=== PATIENT | female | born 1965 | race Two or more races ===

== ENCOUNTER 2024-01-18 07:53 | Outpatient (OUT) | payer OTHER, SELFPAY ==
--- NOTE | 2024-01-18 07:57 | MM_ITS ---
Patient Name: BRITTANI BARRIENTOS MR#: [id number] : 1965 Exam Date: 01/18/2024 Ordering Doctor: DR TL CÁRDENAS M.D. RADIOLOGY REPORT PROCEDURE: MM TOMOSYNTHESIS SCREENING BI COMPARISON: MG MAMM SCREEN ROSI W CAD, 09/29/2018. MG MAMM SCREEN 3D ROSI CAD, 02/04/2021. INDICATIONS: Screening Calculator Name NCI Breast Cancer Risk Assessment Tool 5 Year Breast Cancer Risk 1.80% Lifetime Breast Cancer Risk 9.50% Personal Breast Cancer No Personal Ovarian Cancer No Treatments None Family Cancers Brother with kidney/lung cancer at age 48; Mother with bone cancer at age 75; Mother with breast cancer at age 76. LOCATION: [facility] BREAST COMPOSITION: Heterogeneously dense,which may obscure small masses. FINDINGS: DIAGNOSTIC CATEGORY 0--INCOMPLETE: NEED ADDITIONAL IMAGING EVALUATION. Scattered benign-appearing nodules are present. Scattered benign-appearing calcifications are present. Scattered benign-appearing lymph nodes are present. RIGHT BREAST: Increasing cluster of calcifications upper outer quadrant, mid to posterior breast. Spot magnification recommended. LEFT BREAST: No significant suspicious finding. RECOMMENDATIONS: ADDITIONAL MAMMOGRAPHIC VIEWS REQUIRED: RIGHT BREAST - spot magnification PLEASE NOTE: A NORMAL MAMMOGRAM DOES NOT EXCLUDE THE POSSIBILITY OF BREAST CANCER. A CLINICALLY SUSPICIOUS PALPABLE LUMP SHOULD BE BIOPSIED. Dictated by: Dennis Reed MD on 01/18/2024 at 09:20 Approved by: Dennis Reed MD on 01/18/2024 at 09:23
== END 2024-01-18 07:54 | disposition home or self-care (01) ==
LOC: MAMMO 07:53
PROVIDERS: PCP Family Medicine; Visit Provider Family Medicine
DX: Z12.31 Encounter for screening mammogram for malignant neoplasm of breast (principal); Z80.3 Family history of malignant neoplasm of breast; Z80.51 Family history of malignant neoplasm of kidney; Z80.1 Family history of malignant neoplasm of trachea, bronchus and lung; Z80.8 Family history of malignant neoplasm of other organs or systems
CPT/HCPCS: 77063; 77067

== ENCOUNTER 2024-02-05 11:45 | Outpatient (OUT) | payer OTHER, SELFPAY ==
--- NOTE | 2024-02-05 11:48 | MM_ITS ---
Patient Name: BRITTANI BARRIENTOS MR#: [id number] : 1965 Exam Date: 02/05/2024 Ordering Doctor: DR TL CÁRDENAS M.D. RADIOLOGY REPORT PROCEDURE: MAMMOGRAM RIGHT DIAGNOSTIC DIGITAL FOLLOW UP COMPARISON: MM TOMOSYNTHESIS SCREENING BI, 01/18/2024. MG MAMM SCREEN 3D ROSI CAD, 02/04/2021. MG MAMM SCREEN ROSI W CAD, 09/29/2018. MG MAMM SCREEN ROSI W CAD, 09/28/2017. INDICATIONS: Abnormal Mammogram Calculator Name NCI Breast Cancer Risk Assessment Tool 5 Year Breast Cancer Risk 1.80% Lifetime Breast Cancer Risk 9.50% Personal Breast Cancer No Personal Ovarian Cancer No Treatments None Family Cancers Brother with kidney/lung cancer at age 48; Mother with bone cancer at age 75; Mother with breast cancer at age 76. LOCATION: [facility] BREAST COMPOSITION: Heterogeneously dense,which may obscure small masses. FINDINGS: DIAGNOSTIC CATEGORY 4--SUSPICIOUS FOR MALIGNANCY. FINDING DOES NOT EXHIBIT CLASSIC FINDINGS OF BREAST CANCER: RIGHT BREAST: Spot magnification views demonstrate increased number of pleomorphic calcifications within posterior upper-outer quadrant, approximately 9 o'clock. Stereotactic guided biopsy is recommended. RECOMMENDATIONS: STEREOTACTIC BREAST BIOPSY: RIGHT BREAST PLEASE NOTE: A NORMAL MAMMOGRAM DOES NOT EXCLUDE THE POSSIBILITY OF BREAST CANCER. A CLINICALLY SUSPICIOUS PALPABLE LUMP SHOULD BE BIOPSIED. Dictated by: Robert Blanc M.D. on 02/05/2024 at 12:21 Approved by: Robert Blanc M.D. on 02/05/2024 at 12:41
--- OUTSIDE RECORDS SUMMARY | 2024-02-05 11:56 | XMS_ITS | CCD ---
Author Organization [facility] Care Team Providers Care Water Purifier Name Role Phone FISH PINEDA Primary Care Unavailable CONNOR, DR LISA Mcdaniel Attending Unavailable HEMMINDI, DR LISA Mcdaniel Admitting Unavailable HEMMINDI, DR LISA Mcdaniel Admitting Unavailable FISH PINEDA Primary Care Unavailable EDILMA TABOR Consulting Unavailable CONNOR, DR LISA Mcdaniel Attending Unavailable HEMMINDI, DR LISA Mcdaniel Consulting Unavailable Mónica Rivera MD Primary Care Provider LISA PAT Attending Unavailable Medications Current Medications Medication Drug Class(es) Dates Sig (Normalized) Sig (Original) atorvastatin 10 mg oral tablet (3 sources) HMG-CoA Reductase Inhibitor Start: 08-14-20 23 take 1 tablet by mouth in the morning atorvastatin (Lipitor) 10 MG tablet Indications: Benign essential hypertension (CMS/HCC) Take 1 tablet (10 mg) by mouth in the morning. 90 tablet 3 08/14/2023 Active azithromycin 250 mg oral tablet (2 sources) Macrolide Antimicrobial Start: 12-23-19 24 End: 12-27-19 24 take 2 tablets by mouth once daily, then take 1 tablet by mouth once daily azithromycin (Zithromax) 250 MG tablet Indications: URI with cough and congestion Take 2 tablets (500 mg) by mouth Daily for 1 day, THEN 1 tablet (250 mg) Daily for 4 days. 6 tablet 0 12/23/2023 12/27/2023 Active benzonatate 200 mg oral capsule (2 sources) Non-narcotic Antitussive Start: 12-23-19 24 End: 12-30-19 24 take 1 capsule by mouth three times daily as needed for cough benzonatate (Tessalon) 200 MG capsule Indications: URI with cough and congestion Take 1 capsule (200 mg) by mouth 3 (three) times a day as needed for cough for up to 7 days Do not crush or chew. 21 capsule 0 12/23/2023 12/30/2023 Active carvedilol 25 mg oral tablet (3 sources) alpha-Adrenergic Alejandra, beta-Adrenergic Alejandra Start: 07-31-20 take 1 tablet by mouth in the morning carvedilol (Coreg) 25 MG tablet Indications: Benign essential hypertension (CMS/HCC) Take 1 tablet (25 mg) by mouth in the morning and 1 tablet (25 mg) in the evening. Take with meals. 100 tablet 3 07/31/2023 Active hydroCHLOROthiazide 25 mg oral tablet (3 sources) Thiazide Diuretic Start: 07-31-20 take 1 tablet by mouth in the morning hydroCHLOROthiazide (HYDRODiuril) 25 MG tablet Indications: Benign essential hypertension (CMS/HCC) Take 1 tablet (25 mg) by mouth in the morning. 100 tablet 3 07/31/2023 Active metFORMIN hydrochloride 500 mg oral tablet (3 sources) Biguanide take 1 tablet by mouth in the morning metFORMIN (Glucophage) 500 MG tablet Take 1 tablet by mouth in the morning and 1 tablet in the evening. Take with meals. 0 Active Semaglutide,0.25 or 0.5MG/DOS, (Ozempic, 0.25 or 0.5 MG/DOSE,) 2 MG/3ML solution pen-injector (2 sources) Start: 12-23-19 inject 0.25-0.5 mg by subcutaneous injection every week, then inject 0.5 mg by subcutaneous injection every month Semaglutide,0.25 or 0.5MG/DOS, (Ozempic, 0.25 or 0.5 MG/DOSE,) 2 MG/3ML solution pen-injector Indications: Type 2 diabetes mellitus without complication, without long-term current use of insulin (CMS/HCC) Inject 0.25-0.5 mg under the skin 1 (one) time per week Increase to 0.5 mg after one month. 3 mL 1 12/23/2023 Active Problems Active Problems Problem Classification Problem Date Documented Da te Episodic/Chronic Adjustment disorders (3 sources) Stress and adjustment reaction; Translations: [Adjustment disorder with other symptoms] Onset: 07-31-2023 07-31-2023 Chronic Anxiety disorders (3 sources) Generalized anxiety disorder; Translations: [Generalized anxiety disorder] Onset: 07-31-2023 07-31-2023 Chronic Diabetes mellitus without complication (5 sources) Diabetes mellitus; Translations: [Type 2 diabetes mellitus without complications] Onset: 07-31-2023 07-31-2023 Chronic Disorders of lipid metabolism (3 sources) Hyperlipidemia; Translations: [Hyperlipidemia, unspecified] Onset: 07-31-2023 07-31-2023 Chronic Essential hypertension (5 sources) Benign essential hypertension; Translations: [Essential (primary) hypertension] Onset: 07-31-2023 07-31-2023 Chronic Joint disorders and dislocations; trauma-related (4 sources) Unspecified internal derangement of right knee; Translations: [Derangement of right knee] Onset: 10-25-2022 07-31-2023 Chronic Other connective tissue disease (5 sources) Muscle pain; Translations: [Myalgia, unspecified site] Onset: 07-31-2023 07-31-2023 Episodic Other non-traumatic joint disorders (4 sources) Pain in right knee; Translations: [PAIN IN RIGHT KNEE] Onset: 10-20-2022 Episodic Other nutritional; endocrine; and metabolic disorders (3 sources) Body mass index 30+ - obesity; Translations: [Obesity, unspecified] Onset: 07-31-2023 07-31-2023 Chronic Other upper respiratory infections (2 sources) Upper respiratory infection; Translations: [Acute upper respiratory infection, unspecified] 12-23-2023 Episodic Past or Other Problems Problem Classification Problem Date Documented Da te Episodic/Chronic Other non-traumatic joint disorders (3 sources) Anterior knee pain; Translations: [Pain in right knee] Onset: 07-31-2023 07-31-2023 Episodic Results Test Name Value Interpretation Reference Range Facility Laboratory - Hematology and Cell countson 12-23-2023 HbA1c (Bld) [Mass fraction] 8.5 % [facility] No Panel Informationon 12-23 INFLUENZA A Negative [facility] re INFLUENZA B Negative [facility] re Interpretation and review of laboratory results [facility] Interpretation and review of laboratory results Abnormal [facility] XR KNEE RT 4V or >on 022 XR KNEE RT 4V or > EXAM: XR KNEE RT 4V or > HISTORY: Pain of right knee joint after overuse since March 2022. COMPARISON: None. TECHNIQUE: 4 views of the right knee were obtained. FINDINGS: There is no evidence of an acute fracture or dislocation. No focal osteochondral injury is identified. There is mild narrowing of the medial compartment and tiny osteophytes are seen throughout the knee. There is a 4 mm round calcification seen along the medial aspect of the medial condyle. The patellofemoral joint appears intact. There is no significant joint effusion. IMPRESSION: No acute fracture or dislocation. The mild degenerative changes are present as described. No osteochondral injury is identified. There is a calcification seen closely related to the medial aspect of the medial condyle. This may be related to the medial collateral ligament or may be a loose body within the joint. If the patient's symptoms persist and further evaluation is clinically indicated then an MRI of the knee is recommended. Electronically authenticated by: EDILMA TABOR Date: 2022-10-20 19:00 Normal [facility] Complete Blood Count with Au to Diffon 01-08-2022 Basophils (Bld) [#/Vol] 0.02 10*3/uL Normal 0.00-0.20 [facility] Comment on above: Performed By: #### C BCAD, CMP, LIPD #### [facility] [address] [place], [place] [id number] Basophils/100 WBC (Bld) 0.3 % Normal [facility] Comment on above: Performed By: #### C BCAD, CMP, LIPD #### [facility] [address] [place], [place] [id number] Eosinophils (Bld) [#/Vol] 0.16 10*3/uL Normal 0.02-0.50 [facility] Comment on above: Performed By: #### C BCAD, CMP, LIPD #### [facility] [address] [place], [place] [id number] Eosinophils/100 WBC (Bld) 2.2 % Normal [facility] Comment on above: Performed By: #### C BCAD, CMP, LIPD #### [facility] [address], [place] [id number] Erythrocyte distribution width (RBC) [Ratio] 12.9 % Normal 11.0-15.0 [facility] Comment on above: Performed By: #### C BCAD, CMP, LIPD #### [facility] [address] [place], [place] [id number] Hematocrit (Bld) [Volume fraction] 44.3 % Normal 35.0-47.0 [facility] Comment on above: Performed By: #### C BCAD, CMP, LIPD #### [facility] [address] [place], [place] [id number] Hemoglobin (Bld) [Mass/Vol] 14.8 g/dL Normal 11.6-15.5 [facility] Comment on above: Performed By: #### C BCAD, CMP, LIPD #### [facility] [address], [place] [id number] Lymphocytes (Bld) [#/Vol] 2.2 10*3/uL Normal 0.9-3.9 [facility] Comment on above: Performed By: #### C BCAD, CMP, LIPD #### [facility] [address] [place], [place] [id number] Lymphocytes/100 WBC (Bld) 29.9 % Normal [facility] Comment on above: Performed By: #### C BCAD, CMP, LIPD #### [facility] [address], [place] [id number] MCH (RBC) [Entitic mass] 29.7 pg Normal 27.0-33.0 [facility] Comment on above: Performed By: #### C BCAD, CMP, LIPD #### [facility] [address] [place], [place] [id number] MCHC (RBC) [Mass/Vol] 33.4 g/dL Normal 32.0-36.0 [facility] Comment on above: Performed By: #### C BCAD, CMP, LIPD #### [facility] [address] [place], [place] [id number] MCV (RBC) [Entitic vol] 89 fL Normal 80-100 [facility] Comment on above: Performed By: #### C BCAD, CMP, LIPD #### [facility] [address] [place], [place] [id number] Monocytes (Bld) [#/Vol] 0.8 10*3/uL Normal 0.2-0.9 [facility] Comment on above: Performed By: #### C BCAD, CMP, LIPD #### [facility] [address] [place], [place] [id number] Monocytes/100 WBC (Bld) 10.3 % Normal [facility] Comment on above: Performed By: #### C BCAD, CMP, LIPD #### [facility] [address] [place], [place] [id number] Neutrophils (Bld) [#/Vol] 4.2 10*3/uL Normal 1.5-7.8 [facility] Comment on above: Performed By: #### C BCAD, CMP, LIPD #### [facility] [address] [place], [place] [id number] Neutrophils/100 WBC (Bld) 57.2 % Normal [facility] Comment on above: Performed By: #### C BCAD, CMP, LIPD #### [facility] [address] [place], [place] [id number] Platelet mean volume (Bld) [Entitic vol] 12.20 fL Normal 7.50-12.50 [facility] Comment on above: Performed By: #### C BCAD, CMP, LIPD #### [facility] [address] [place], [place] [id number] Platelets (Bld) [#/Vol] 229 10*3/uL Normal 140-400 [facility] Comment on above: Performed By: #### C BCAD, CMP, LIPD #### [facility] [address] [place], [place] [id number] RBC (Bld) [#/Vol] 4.98 10*6/uL Normal 3.90-5.20 [facility] Comment on above: Performed By: #### C BCAD, CMP, LIPD #### [facility] [address] [place], [place] [id number] RDW-SD 41.9 fL Normal 37.0-50.0 [facility] Comment on above: Performed By: #### C BCAD, CMP, LIPD #### [facility] [address], [place] [id number] WBC (Bld) [#/Vol] 7.4 10*3/uL Normal 3.8-11.0 [facility] Comment on above: Performed By: #### C BCAD, CMP, LIPD #### [facility] [address] [place], [place] [id number] Comprehensive Metabolic Pane mario 01-08-2022 Albumin [Mass/Vol] 4.4 g/dL Normal 3.6-5.1 [facility] Comment on above: Performed By: #### C BCAD, CMP, LIPD #### [facility] [address] [place], [place] [id number] Albumin/Globulin [Mass ratio] 1.6 {ratio} Normal 1.0-2.5 [facility] Comment on above: Performed By: #### C BCAD, CMP, LIPD #### [facility] [address] [place], [place] [id number] ALP [Catalytic activity/Vol] 121 U/L High 35-119 [facility] Comment on above: Performed By: #### C BCAD, CMP, LIPD #### [facility] [address] [place], [place] [id number] ALT [Catalytic activity/Vol] 16 U/L Normal 6-33 [facility] Comment on above: Result Comment: 10/09 Female reference range changed. Performed By: #### C BCAD, CMP, LIPD #### [facility] [address] [place], [place] [id number] Anion gap [Moles/Vol] 17 mmol/L Normal 12-20 [facility] Comment on above: Result Comment: Effe ctive 11/14/2019 reference range changed. Performed By: #### C BCAD, CMP, LIPD #### [facility] [address] [facility] [place] [id number] AST [Catalytic activity/Vol] 19 U/L Normal 9-34 [facility] Comment on above: Performed By: #### C BCAD, CMP, LIPD #### [facility] [address], [place] [id number] Bilirubin [Mass/Vol] 0.41 mg/dL Normal 0.30-1.20 [facility] Comment on above: Performed By: #### C BCAD, CMP, LIPD #### [facility] [address] [place], [place] [id number] BUN/CREA 27 Ratio High 6-22 [facility] Comment on above: Performed By: #### C BCAD, CMP, LIPD #### [facility] [address] [place], [place] [id number] Calcium [Mass/Vol] 9.6 mg/dL Normal 8.6-10.2 [facility] Comment on above: Performed By: #### C BCAD, CMP, LIPD #### [facility] [address] [place], [place] [id number] Chloride [Moles/Vol] 103 mmol/L Normal 98-107 [facility] Comment on above: Performed By: #### C BCAD, CMP, LIPD #### [facility] [address] [place], [place] [id number] CO2 [Moles/Vol] 28 mmol/L Normal 20-31 [facility] Comment on above: Performed By: #### C BCAD, CMP, LIPD #### [facility] [address] [place], [place] [id number] Creatinine [Mass/Vol] 0.6 mg/dL Normal 0.6-1.4 [facility] Comment on above: Performed By: #### C BCAD, CMP, LIPD #### [facility] [address] [place], [place] [id number] eGFRAA 124 mL/min/1.73m2 Normal >60 [facility] Comment on above: Performed By: #### C BCAD, CMP, LIPD #### [facility] [address] [place], [place] [id number] eGFRNAA 103 mL/min/1.73m2 Normal >60 [facility] Comment on above: Performed By: #### C BCAD, CMP, LIPD #### [facility] [address] [place], [place] [id number] Globulin (S) [Mass/Vol] 2.7 g/dL Normal 1.9-3.7 [facility] Comment on above: Performed By: #### C BCAD, CMP, LIPD #### [facility] [address] [place], [place] [id number] Glucose [Mass/Vol] 135 mg/dL High 65-99 [facility] Comment on above: Result Comment: For FASTING Glucose --- ADA reference ranges: Normal 65-99 mg/dl Prediabetes 100-125 Diabetes >/= 126 Performed By: #### C BCAD, CMP, LIPD #### [facility] [address] [place], [place] [id number] Potassium [Moles/Vol] 3.8 mmol/L Normal 3.5-5.5 [facility] Comment on above: Performed By: #### C BCAD, CMP, LIPD #### [facility] [address] [place], [place] [id number] Protein [Mass/Vol] 7.1 g/dL Normal 6.1-8.1 [facility] Comment on above: Performed By: #### C BCAD, CMP, LIPD #### [facility] [address] [place], [place] [id number] Sodium [Moles/Vol] 143 mmol/L Normal 135-146 [facility] Comment on above: Performed By: #### C BCAD, CMP, LIPD #### [facility] [address] [place], [place] [id number] Urea nitrogen [Mass/Vol] 16 mg/dL Normal 7-25 [facility] Comment on above: Performed By: #### C BCAD, CMP, LIPD #### [facility] [address] [place], [place] [id number] Lipid Panelon 01-08-2022 Cholesterol [Mass/Vol] 251 mg/dL High 125-200 [facility] Comment on above: Result Comment: Low risk < 200mg/dL Borderline risk 201-239 mg/dl High risk > or equal to 240 Performed By: #### C BCAD, CMP, LIPD #### [facility] [address] [place], [place] [id number] Cholesterol in HDL [Mass/Vol] 63 mg/dL Normal >40 [facility] Comment on above: Result Comment: High Cardiovascular Risk HDL <40 mg/dL Low Cardiovascular Risk HDL > or equal to 60 mg/dl Performed By: #### C BCAD, CMP, LIPD #### [facility] [address] [place], [place] [id number] Cholesterol in LDL [Mass/Vol] 148 mg/dL Normal [facility] Comment on above: Result Comment: LDL ATP III CLASSIFICATION LDL less than 100 mg/dl Optimal LDL 100-129 mg/dl Near or above optimal LDL 130-159 Borderline high LDL 160-189 High LDL greater than 189 mg/dl Very High Performed By: #### C BCAD, CMP, LIPD #### [facility] [address] [place], [place] [id number] Cholesterol in VLDL [Mass/Vol] 40 mg/dL Normal [facility] Comment on above: Performed By: #### C BCAD, CMP, LIPD #### [facility] [address] [place], [place] [id number] Cholesterol.total/Ch olesterol in HDL [Mass ratio] 4 {ratio} Normal [facility] Comment on above: Performed By: #### C BCAD, CMP, LIPD #### [facility] [address] [place], [place] [id number] Triglyceride [Mass/Vol] 200 mg/dL High 30-150 [facility] Comment on above: Result Comment: TRIG ATPIII CLASSIFICATIONS TRIG less than 150 mg/dl Normal TRIG 150-199 mg/dl Borderline High TRIG 200-500 mg/dl High TRIG greather than 500 mg/dl Very High Performed By: #### C BCAD, CMP, LIPD #### [facility] [address] [place], [place] [id number] Microalbumin (with Creat)on 01-08-2022 mALB 3.3 mg/dL Normal [facility] Comment on above: Result Comment: mALB reference range not established. Performed By: #### m ALBC #### [facility] [address] [place], [place] [id number] mALB/Creat Ratio 20.8 MCG/MG Normal [facility] Specialist Comment on above: Result Comment: The ADA (Diabetes Care 26:S94-S98, 2003) defines abnormalities in Albumin excretion as follows: Category Result (MCG/MG Creatinine) Normal <30 Microalbuminuria 30-299 Clinical Albuminuria > or = 300 Performed By: #### m ALBC #### [facility] [address] [place], [place] [id number] UCREA 159 mg/dL Normal 28-217 [facility] Comment on above: Performed By: #### m ALBC #### [facility] [address] [place], [place] [id number] Vital Signs Date Time Vital Sign Value Performing Clinician Faci lity 12-23-2023 14:39-0500 Body mass index (BMI) [Ratio] 41.34 kg/m2 Lisa Hemmer PA Work Phone: [facility] 12-23-2023 14:39-0500 Body temperature 101.8 [degF] Lisa Hemmer PA Work Phone: [facility] 12-23-2023 14:39-0500 Body weight 89.72 kg Lisa Hemmer PA Work Phone: [facility] 12-23-2023 14:39-0500 Diastolic blood pressure 100 mm[Hg] Lisa Hemmer PA Work Phone: [facility] 12-23-2023 14:39-0500 Heart rate 97 /min Lisa Hemmer PA Work Phone: [facility] 12-23-2023 14:39-0500 Respiratory rate 16 /min Lisa Hemmer PA Work Phone: [facility] 12-23-2023 14:39-0500 SaO2% (BldA) [Mass fraction] 97 % Lisa Hemmer PA Work Phone: [facility] 12-23-2023 14:39-0500 Systolic blood pressure 172 mm[Hg] Lisa Hemmer PA Work Phone: [facility] Encounters Encounter Date Encounter Type Care Provider Facility Start: 12-23-2023 End: 12-23-2023 ambulatory LISA PAT Not Available Start: 12-23-2023 End: 12-23-2023 Office outpatient visit 25 minutes Lisa CORADO Work Phone: [facility] Comment on above: Type 2 diabetes nilsa itus without complication, without long- term current use of insulin (CMS/HCC) (Primary Dx); Myalgia; Benign essential hypertension (CMS/HCC); URI with cough and congestion Start: 12-23-2023 Chart abstracting Lisa CORADO Work Phone: [facility] Start: 10-20-2022 End: 10-21-[address] LISA PAT Facility:[facility] Start: 02-10-2022 ambulatory FISH PINEDA Facility:[facility] Procedures Date Procedure Procedure Detail Performing Clinician Start: 12-23-2023 Infectious agent dna /rna influenza 1st 2 types Lisa CORADO Work Phone: Start: 12-23-2023 Hemoglobin glycosyla andre a1c Lisa CORADO Work Phone: Start: 02-04-2021 Mammography Lisa CORADO Work Phone: Plan of Treatment Date Care Activity Detail Author Start: 09-09-2024 Screening for malign ant neoplasm of cervix Cervical Cancer Screening [facility] Comment on above: Postponed from 12/15 (Other Medical Reasons) Start: 09-09-2024 Screening for malign ant neoplasm of colon Colorectal Cancer Screening [facility] Comment on above: Postponed from 12/15 (Other Medical Reasons) Start: 05-08-2024 Influenza vaccination Influenza Vacc ine (#1) [facility] Comment on above: Postponed from 07/10 (Patient Refused) Start: 03-22-2024 Hemoglobin A1c measurement Diabetes: Hemoglobin A1C [facility] Start: 01-26-2024 End: 01-26-2024 Patient encounter procedure 01/26/2024 4:00 PM EDT Office Visit [facility] [address] [place] [id number] Lisa Pat PA [address] [place] [address] [facility] Start: 01-21-2024 Urine screening for protein Diabetes: Urine Protein Screening [facility] Start: 12-23-2023 End: 12-23-2023 Patient encounter procedure 12/23/2023 2:30 PM EST Office Visit [facility] [address] [place] [address] Lisa Pat PA [address] [place] [address] [facility] Start: 10-30-2023 Hemoglobin A1c measurement Diabetes: Hemoglobin A1C [facility] Start: 01-14-2023 Glaucoma screening Diabetes: R etinopathy Screening [facility] Start: 02-04-2022 Screening for malign ant neoplasm of breast Mammogram [facility] Start: 1993 Screening for malign ant neoplasm of cervix HPV/Cotest [facility] Start: 1984 Screening for malign ant neoplasm of cervix Pap Smear [facility] Start: 1963 Screening for malign ant neoplasm of colon [facility] VIRAL RESPIRATORY INFECTION (HTRX) VIRAL RESPIRATORY INFECTION (HTRX) Lab Routine Myalgia URI with cough and congestion Ordered: 12/23/2023 [facility] Work Phone: Comment on above: Ordered: 12/23/2023 Immunizations Immunization Date Immunization Notes Care Provider Elmer sheets 09-08-2013 tetanus toxoid, redu kirby diphtheria toxoid, and acellular pertussis vaccine, adsorbed Lisa CORADO Work Phone: [facility] 06-15-2012 tetanus toxoid, redu kirby diphtheria toxoid, and acellular pertussis vaccine, adsorbed Lisa CORADO Work Phone: [facility] Payers Date Payer Category Payer Unknown [employer] [id number] 2022-Present [address] [address] [place] [address] [id number] 2022 Unknown [id number] 1965 Unknown [id number] 1963 Unknown [id number] 1963 Unknown [id number] 1959 Self-pay 1959 Unknown [id number] Social History Date Type Detail Facility Start: 07-31-2023 Tobacco smoking stat [facility] Ex-smoker [facility] End: 11-09-1992 History of tobacco use Current smoker [facility] End: 11-09-1992 History of tobacco use Cigarette Smoker [facility] Start: 07-31-2023 Tobacco use and exposure Smokeless t obacco non-user [facility] Start: 07-31-2023 End: 12-23-2023 Alcohol intake Ex-drinker (finding) [facility] Start: 07-31-2023 End: 12-23-2023 History of Social function [facility] Start: 07-31-2023 End: 12-23-2023 Tobacco use panel [facility] Start: 1965 Sex Assigned At Not on file [facility] History of Present illness Narrative 12-23-2023 MAK Greene - 12/23/2023 2:30 PM EST Note Date & Type Note Facility 12-23-2023 History of Presen t illness Narrative Subjective Patient ID: Brittani Barrientos is a 58 y.o. female who presents for head cold. Brittani is present today for evaluation of head cold. Complains cough with phlegm, SOB, wheezing, sinus pressure/pain, headaches, post nasal drainage, fever, body aches, fatigue, eye pain. Been sick since Thursday. Has just been taking tylenol for the fever. Admits her diet has not been good. Current Outpatient Medications on File Prior to Visit Medication Sig Dispense Refill atorvastatin (Lipitor) 10 MG tablet Take 1 tablet (10 mg) by mouth in the morning. 90 tablet 3 carvedilol (Coreg) 25 MG tablet Take 1 tablet (25 mg) by mouth in the morning and 1 tablet (25 mg) in the evening. Take with meals. 100 tablet 3 hydroCHLOROthiazide (HYDRODiuril) 25 MG tablet Take 1 tablet (25 mg) by mouth in the morning. 100 tablet 3 metFORMIN (Glucophage) 500 MG tablet Take 1 tablet by mouth in the morning and 1 tablet in the evening. Take with meals. No current facility-administered medications on file prior to visit. No Known Allergies Social History Tobacco Use Smoking status: Former Types: Cigarettes Quit date: 1992 Years since quittin.1 Smokeless tobacco: Never Substance Use Topics Alcohol use: Not Currently Drug use: Never Family History Problem Relation Name Age of Onset Diabetes Mother Hypertension Mother Cancer Mother Hyperlipidemia Mother Diabetes Father Heart disease Father Hypertension Father Past Medical History: Diagnosis Date Anxiety Diabetes mellitus (CMS/HCC) Hyperlipidemia (CMS/HCC) Hypertension (CMS/HCC) Xanthelasma History reviewed. No pertinent surgical history. Visit Vitals BP (!) 172/100 Pulse 97 Temp 101.8 F Resp 16 Wt 197 lb 12.8 oz SpO2 97% BMI 41.34 kg/m Smoking Status Former BSA 1.92 m Review of Systems Constitutional: Positive for fatigue and fever. Negative for chills. HENT: Positive for congestion, postnasal drip, sinus pressure and sinus pain. Eyes: Positive for pain. Respiratory: Positive for cough, shortness of breath and wheezing. Cardiovascular: Negative for chest pain and palpitations. Gastrointestinal: Negative for abdominal pain, constipation, diarrhea, nausea and vomiting. Musculoskeletal: Positive for myalgias. Skin: Negative for rash. Neurological: Positive for headaches. Objective Physical Exam Constitutional: General: She is not in acute distress. Appearance: She is well-developed. She is obese. She is ill-appearing. Comments: Febrile HENT: Head: Normocephalic and atraumatic. Right Ear: Ear canal normal. Tympanic membrane is injected. Left Ear: Ear canal normal. Tympanic membrane is injected. Nose: Congestion present. Right Turbinates: Swollen. Left Turbinates: Swollen. Right Sinus: Frontal sinus tenderness present. Left Sinus: Frontal sinus tenderness present. Mouth/Throat: Mouth: Mucous membranes are moist. Pharynx: Posterior oropharyngeal erythema present. Comments: PND noted Eyes: General: No scleral icterus. Conjunctiva/sclera: Conjunctivae normal. Neck: Thyroid: No thyromegaly. Cardiovascular: Rate and Rhythm: Normal rate and regular rhythm. Heart sounds: Normal heart sounds. No murmur heard. Pulmonary: Effort: Pulmonary effort is normal. No respiratory distress. Breath sounds: No wheezing, rhonchi or rales. Comments: Mildly harsh to auscultation Lymphadenopathy: Cervical: Cervical adenopathy present. Skin: General: Skin is warm and dry. Neurological: General: No focal deficit present. Mental Status: She is alert and oriented to person, place, and time. Psychiatric: Mood and Affect: Mood normal. Behavior: Behavior normal. Office Visit on 12/23/2023 Component Date Value Ref Range Status Hemoglobin A1C 12/23/2023 8.5 Final INFLUENZA A 12/23/2023 Negative Final INFLUENZA B 12/23/2023 Negative Final Assessment/Plan Diagnoses and all orders for this visit: Type 2 diabetes mellitus without complication, without long-term current use of insulin (CMS/[facility]) - POCT Glycated hemoglobin, total - Semaglutide,0.25 or 0.5MG/DOS, (Ozempic, 0.25 or 0.5 MG/DOSE,) 2 MG/3ML solution pen-injector; Inject 0.25-0.5 mg under the skin 1 (one) time per week Increase to 0.5 mg after one month. Advised pt that her HgbA1c has increased significantly from 6.7 to 8.5. Discussed potential s/e I.e. nausea. Pt denies personal or family history of thyroid cancer. Denies h/o pancreatitis. Reviewed how the medication works. Will plan on rechecking her HgbA1c in three months. Continue Metformin for now. Needs to limit simple sugars and carbs in diet. Myalgia - INFLUENZA DNA PROBE - VIRAL RESPIRATORY INFECTION (HTRX) Influenza swab was negative in the office today. Nasal swab sent out for further evaluation. Benign essential hypertension (CMS/HCC) BP markedly elevated today. Likely due to current illness. Encouraged her to push clear fluids. Recheck BP at home later today to make sure it is lowering. URI with cough and congestion - azithromycin (Zithromax) 250 MG tablet; Take 2 tablets (500 mg) by mouth Daily for 1 day, THEN 1 tablet (250 mg) Daily for 4 days. - benzonatate (Tessalon) 200 MG capsule; Take 1 capsule (200 mg) by mouth 3 (three) times a day as needed for cough for up to 7 days Do not crush or chew. - VIRAL RESPIRATORY INFECTION (HTRX) Start the above as directed. Reviewed potential s/e with patient. Encouraged probiotic while on antibiotic. Increase water intake, get plenty of rest. Can take OTC Tylenol/Motrin prn. Follow up if no improvement in one week. Note for work for this week provided. Follow up in about 3 months (around 03/22/2024) for Diabetes. documented in this encounter [facility] Evaluation note Note Date & Type Note Facility Evaluation note Diagnosis Type 2 diabetes mellitus without complication, without long-term current use of insulin ([facility])- Primary Myalgia Unspecified myalgia and myositis Benign essential hypertension ([facility]) Essential hypertension, benign URI with cough and congestion documented in this encounter [facility] Summary Purpose Family History No Family History Records FoundNo Family History Records FoundNo Family History Records Found Advance Directives No Advanced Directives Records FoundNo Advanced Directives Records FoundNo Advanced Directives Records Found Additional Source Comments INFORMATION SOURCE (unrecogn ized section and content) DATE CREATED AUTHOR 01/09/2022 [facility] Special[facility] DATE CREATED AUTHOR AUTHOR'S ORGANIZ ATION 10/31/2022 [facility] pital DATE CREATED AUTHOR AUTHOR'S ORGANIZ ATION 12/25/2023 [facility] EPIC Care Teams (unrecognized sec tion and content) Water Purifier Relationship Specialty Start Date End Date Mónica Rivera MD [address] [address] PCP - General Family Medicine 03/17/23 Water Purifier Relationship Specialty Start Date End Date Mónica Rivera MD [address] [facility] [address] [place] [address] PCP - General Family Medicine 03/17/23 FOR RECORDS PERTAINING TO PATIENTS WHO ARE OR HAVE BEEN ENROLLED IN A CHEMICAL DEPENDENCY/SUBSTANCEABUSE PROGRAM, SOME INFORMATION MAY BE OMITTED. This clinical summary was aggregated from multiple sources. Caution should be exercised in using it in the provision of clinical care. This summary normalizes information from multiple sources, and as a consequence, information in this document may materially change the coding, format and clinical context of patient data. In addition, data may be omitted in some cases. CLINICAL DECISIONS SHOULD BE BASED ON THE PRIMARY CLINICAL RECORDS. [employer] [facility]. provides no warranty or guarantee of the accuracy or completeness of information in this document.
== END 2024-02-05 11:46 | disposition home or self-care (01) ==
LOC: MAMMO 11:45
PROVIDERS: PCP Family Medicine; Visit Provider Family Medicine
DX: R92.8 Other abnormal and inconclusive findings on diagnostic imaging of breast (principal); Z80.51 Family history of malignant neoplasm of kidney; Z80.1 Family history of malignant neoplasm of trachea, bronchus and lung; Z80.3 Family history of malignant neoplasm of breast; Z80.8 Family history of malignant neoplasm of other organs or systems
CPT/HCPCS: 77065; G0279

== ENCOUNTER 2024-02-22 13:49 | Day surgery (SDC) | payer OTHER, SELFPAY ==
--- NOTE | 2024-02-22 13:55 | MM_ITS ---
Patient Name: BRITTANI BARRIENTOS MR#: [id number] : 1965 Exam Date: 02/22/2024 Ordering Doctor: DR TL CÁRDENAS M.D. This report includes an Addendum and supersedes previous reports for this exam. RADIOLOGY REPORT PROCEDURE: MM STEREOTACTIC LOC RT COMPARISON: MM TOMOSYNTHESIS SCREENING BI, 01/18/2024. MG MAMM RT DIAG FU, 02/05/2024. INDICATIONS: Right Breast Pleomorphic Calcifications DESCRIPTION: Following informed consent, digital stereotactic mammographic views were obtained to localize the lesion. Multiple vacuum-assisted core biopsies were obtained. Specimen images were obtained to confirm proper sampling. The location of the biopsy was then marked as indicated below. FINDINGS: RECOMMENDATIONS: SPECIMEN #, LOCATION: Six, upper outer quadrant of the right breast SPECIMEN IMAGE: Targeted microcalcifications are identified in sample 1. BIOPSY NEEDLE: 10 gauge Revolve(r) vacuum core biopsy needle. MARKER(S) PLACED: A single metallic marker, spring shaped, was placed in the appropriate targeted location. MEDICATION: 4 cubic cm Buffered 1% lidocaine superficial; 8 cubic cm 1% lidocaine with epinephrine deep. COMPLICATIONS: None. PATHOLOGY / LAB: Pending. CONCLUSION: 1. Technically successful biopsy of the breast lesion. 2. Pathology results are pending. An addendum will be added when pathology results are final. Dictated by: Dennis Reed MD on 02/22/2024 at 15:15 Approved by: Dennis Reed MD on 02/22/2024 at 15:17 ADDENDUM: The pathology report is now available and shows benign findings concordant with the imaging findings. Final diagnosis: Fibrocystic change with fibroadenomatoid change with associated calcifications Dictated by: Dennis Reed MD on 03/01/2024 at 08:55 Approved by: Dennis Reed MD on 03/01/2024 at 08:56
--- NOTE | 2024-02-22 13:55 | MM_ITS ---
Patient Name: BRITTANI BARRIENTOS MR#: [id number] : 1965 Exam Date: 02/22/2024 Ordering Doctor: DR TL CÁRDENAS M.D. This report includes an Addendum and supersedes previous reports for this exam. RADIOLOGY REPORT PROCEDURE: MM POST BIOPSY RT COMPARISON: MG MAMM RT DIAG FU, 02/05/2024. MM STEREOTACTIC LOC RT, 02/22/2024. INDICATIONS: Right Breast Pleomorphic Calcifications BREAST COMPOSITION: The breasts are heterogeneously dense,which may obscure small masses. FINDINGS: BIOPSY MARKER: A metallic marker has been placed in the targeted location within the upper outer quadrant of the right breast. BREAST FINDINGS: Reduction in targeted microcalcifications consistent with successful sampling Dictated by: Dennis Reed MD on 02/22/2024 at 15:17 Approved by: Dennis Reed MD on 02/22/2024 at 15:18 ADDENDUM: FINDINGS: DIAGNOSTIC CATEGORY 2--BENIGN FINDING: RECOMMENDATIONS: ROUTINE MAMMOGRAM AND CLINICAL EVALUATION IN 12 MONTHS. Dictated by: Dennis Reed MD on 03/01/2024 at 08:59 Approved by: Dennis Reed MD on 03/01/2024 at 08:59
[2024-02-22 14:00] VITALS: BP 147/93; PULSE 72; O2SAT 98
[2024-02-22] MEDS: 0.9 % SODIUM CHLORIDE 250 ML IRR (14:00)
[2024-02-22] MEDS: LIDOCAINE HCL 10 ML, SODIUM BICARBONATE 1 MEQ INJ (14:00)
[2024-02-22] MEDS: LIDOCAINE HCL/EPINEPHRINE 10 ML, SODIUM BICARBONATE 1 MEQ INJ (14:00)
--- NOTE | 2024-02-22 17:42 | SUR.PREOP ---
02/11/24 Pt instruccted on procedure , date, time, and prep.
== END 2024-02-22 15:05 | disposition home or self-care (01) ==
LOC: MAMMO 13:49
PROVIDERS: Radiology Diagnostic Radiology; PCP Family Medicine; Visit Provider Family Medicine
DX: R92.1 Mammographic calcification found on diagnostic imaging of breast (principal)
CPT/HCPCS: 19081; 77065; 88305